=== PATIENT | male | born 2000 | race Caucasian/White ===

== ENCOUNTER 2018-11-10 12:27 | Emergency (ER) | payer OTHER ==
--- NOTE | 2018-11-10 12:53 | EDM.PDOC ---
ED HPI GENERAL MEDICAL PROBLEM - General Chief Complaint: Lower Extremity Injury/Pain Stated Complaint: RIGHT FOOT BROKEN Time Seen by Provider: 11/10/18 12:40 Source of Information: Reports: Patient History Limitations: Reports: No Limitations - History of Present Illness INITIAL COMMENTS - FREE TEXT/NARRATIVE: Patient presents reporting right foot injury. He states that he had tipped a large barrel up with his right foot to enable a skid steer mount loader to get under it and pick it up. The skid steer mount loader came at it a little faster than usual hyperflexing the right foot. Patient states he immediately fell to the ground due to pain. Now he has a lot of pain in his right forefoot. Right Foot Pain Score (Numeric/FACES): 8 - Related Data Allergies Allergy/AdvReac Type Severity Reaction Status Date / Time Cephalosporins Allergy Cannot Verified 11/10/18 12:31 Remember Home Meds: Home Meds Diclofenac Sodium [Voltaren] 75 mg PO BIDMEALS PRN #20 tab.ec 11/10/18 [Rx] Past Medical History - Past Health History Medical/Surgical History: Denies Medical/Surgical History Other Musculoskeletal History: fx left ankle - Infectious Disease History Infectious Disease History: Reports: Chicken Pox Social & Family History - Family History Family Medical History: Noncontributory - Caffeine Use Caffeine Use: Reports: Coffee - Recreational Drug Use Recreational Drug Use: No Review of Systems - Review of Systems Review Of Systems: ROS reveals no pertinent complaints other than HPI. ED EXAM, GENERAL - Physical Exam Exam: See Below Exam Limited By: No Limitations General Appearance: Alert, No Apparent Distress Ears: Normal External Exam Nose: Normal Inspection Throat/Mouth: Normal Inspection Head: Atraumatic, Normocephalic Neck: Normal Inspection Respiratory/Chest: No Respiratory Distress, Lungs Clear Cardiovascular: Normal Peripheral Pulses, Regular Rate, Rhythm, No Murmur Extremities: Other (Right foot with scant swelling over the forefoot, no erythema, ecchymosis. Pedal and posttibial pulses are strong capillary refill one second toes. Range of motion of the toes and ankle limited due to pain. He has some tenderness across the forefoot as well.) Neurological: Alert, Oriented Psychiatric: Normal Affect, Normal Mood Skin Exam: Warm, Dry, Intact, Normal Color, No Rash Lymphatic: No Adenopathy Course - Vital Signs Last Recorded V/S: Last Vital Signs Temp 36.3 C 11/10/18 12:32 Pulse 89 11/10/18 12:32 Resp 20 11/10/18 12:32 BP 153/81 H 11/10/18 12:32 Pulse Ox 99 11/10/18 12:32 - Orders/Labs/Meds Orders: Active Orders 24 hr Category Date Time Status DME for Discharge [COMM] Stat Oth 11/10/18 13:42 Ordered Meds: Medications Discontinued Medications Generic Name Dose Route Start Last Admin Trade Name Freq PRN Reason Stop Dose Admin Ketorolac Tromethamine 60 mg 11/10/18 13:41 11/10/18 13:50 Toradol IM 11/10/18 13:42 60 mg ONETIME ONE Administration Departure - Departure Time of Disposition: 14:26 Disposition: Home, Self-Care 01 Condition: Good Clinical Impression: Right foot strain Qualifiers: Encounter type: initial encounter Qualified Code(s): S96.911A - Strain of unspecified muscle and tendon at ankle and foot level, right foot, initial encounter - Discharge Information Prescriptions: Diclofenac Sodium [Voltaren] 75 mg PO BIDMEALS PRN #20 tab.ec PRN Reason: Pain Referrals: PCP,None [Primary Care Provider] - [facility] [place] [Outside] Forms: ED Department Discharge Additional Instructions: 1. Wear boot until examined by occupational health before return to work 2. Diclofenac twice daily as needed for pain - My Orders Last 24 Hours: My Active Orders 11/10/18 13:42 DME for Discharge [COMM] Stat - Assessment/Plan Last 24 Hours: My Active Orders 11/10/18 13:42 DME for Discharge [COMM] Stat
[2018-11-10] MEDS ORDERED: Ketorolac 60 MG/2 ML SDV IM ONE (13:41)
--- NOTE | 2018-11-10 13:44 | CR ---
EXAMINATION: Right foot HISTORY: Pain COMPARISON: None TECHNIQUE: 3 views FINDINGS/IMPRESSION: There is no acute osseous abnormality, dislocation, or fracture. Bone mineralization and joint spaces are preserved. Mild hallux valgus.
== END 2018-11-10 14:55 | disposition home or self-care (01) ==
LOC: MW.ED 12:27
DX: S96.911A Strain of unspecified muscle and tendon at ankle and foot level, right foot, initial encounter (principal); X50.9XXA Other and unspecified overexertion or strenuous movements or postures, initial encounter
CPT/HCPCS: 73630; 96372; 99283; J1885